=== PATIENT | female | born 1990 | race Caucasian/White ===

== ENCOUNTER 2016-10-22 15:43 | Inpatient (IN) | payer OTHER ==
[~2016-10-22] VITALS: Ht 157.5 cm; Wt 90.7 kg
[~2016-10-22 15:43] MED LIST: BACITRACIN ZINC 15 GM TOPICAL OINTMENT TP ONE; BUPIVACAINE /PF 0.75% 10 ML VIAL INJ ONE; LR 1,000 ML IV.SOLN IV ONE; MIDAZOLAM HCL 5 MG/5 ML VIAL ONE; MORPHINE SULFATE 10MG/10ML PF AMP EP ONE; MORPHINE SULFATE 10MG/10ML PF AMP ONE; NS IRRIG SOLN 1000 ML IR ONE; OXYTOCIN 10 UNIT/ML VIAL ONE
[2016-10-22 16:35] VITALS: PULSE 99; RESP 16; TEMP 97.7; O2SAT 100
[2016-10-22] MEDS ORDERED: MEPERIDINE HCL/PF 25 MG/ML DISP.SYRIN IVP PRN ×4 (16:45→20:15)
[2016-10-22 17:14] LABS: WHITE BLOOD COUNT (AUTO) 11.6 K/uL (4.8-10.8)
[2016-10-22 17:23] LABS: MEAN CORPUSCULAR HEMOGLOBIN 29 pg (27-31); RED CELL DISTRIBUTION WIDTH 12.4 % (9.0-15.0)
[2016-10-22 17:25] LABS: HEMATOCRIT 31.6 % (36-48); HEMOGLOBIN 10.5 g/dL (12.0-16.0); MEAN CORPUSCULAR HGB CONC 33 % (32-36); MEAN CORPUSCULAR VOLUME 88 fL (79.0-98.0); PLATELET COUNT (AUTO) 303 K/uL (130-430); RED BLOOD CELL COUNT(AUTO) 3.62 MIL/uL (4.2-6.2)
[2016-10-22 17:43] LABS: BAND % (MANUAL) 0 % (0-6)
[2016-10-22 17:44] LABS: BASOPHILS % (MANUAL) 0 % (0-2); EOSINOPHILS % (MANUAL) 0 % (0-7); LYMPHOCYTES % (MANUAL) 19 % (20-46); MONOCYTES % (MANUAL) 7 % (0-11)
[2016-10-22] MEDS ORDERED: LR 1,000 ML IV ONE (18:44)
[2016-10-22] MEDS ORDERED: CITRIC ACID/SODIUM CITRATE 30 ML UDC PO ONE (18:45)
[2016-10-22] MEDS ORDERED: CLINDAMYCIN 900 mg/50mL D5W 50 ML IV ONE (18:45)
[2016-10-22 19:44] LABS: HEMATOCRIT 28.7 % (36-48); HEMOGLOBIN 9.5 g/dL (12.0-16.0); MEAN CORPUSCULAR HEMOGLOBIN 29 pg (27-31); MEAN CORPUSCULAR HGB CONC 33 % (32-36); MEAN CORPUSCULAR VOLUME 88 fL (79.0-98.0); PLATELET COUNT (AUTO) 243 K/uL (130-430); RED BLOOD CELL COUNT(AUTO) 3.26 MIL/uL (4.2-6.2); RED CELL DISTRIBUTION WIDTH 12.4 % (9.0-15.0)
[2016-10-22 19:57] LABS: BAND % (MANUAL) 0 % (0-6); BASOPHILS % (MANUAL) 0 % (0-2); EOSINOPHILS % (MANUAL) 1 % (0-7); LYMPHOCYTES % (MANUAL) 7 % (20-46); MONOCYTES % (MANUAL) 5 % (0-11)
[2016-10-22] MEDS ORDERED: KETOROLAC TROMETHAMINE 30 MG VIAL IVP PRN ×2 (20:15→20:30)
[2016-10-22] MEDS ORDERED: HYDROmorphone 1 MG INJ. 1 MG/ML AMPUL IVP PRN ×2 (20:15→20:30)
[2016-10-22] MEDS ORDERED: HYDROmorphone 2 MG/ML VIAL IVP PRN ×2 (20:15)
[2016-10-22] MEDS ORDERED: LR 1,000 ML IV SCH (20:15)
[2016-10-22] MEDS ORDERED: ONDANSETRON HCL 4 MG/2 ML VIAL IVP PRN ×2 (20:15→20:30)
[2016-10-22] MEDS ORDERED: MORPHINE SULFATE 10MG/10ML PF AMP SP SCH (20:30)
[2016-10-22] MEDS ORDERED: NALOXONE HCL 0.4 MG/ML AMP (NARCAN) IVP PRN (20:30)
[2016-10-22] MEDS ORDERED: DIPHENHYDRAMINE INJ 50 MG/ML VIAL IVP PRN (20:30)
[2016-10-22] MEDS ORDERED: NALBUPHINE HCL 10 MG/ML AMP IVP PRN (20:30)
[2016-10-22 21:00] VITALS: BP 107/71
[2016-10-22] MEDS ORDERED: TEMAZEPAM 15 MG CAPSULE PO PRN (21:00)
[2016-10-22] MEDS ORDERED: OXYTOCIN/NORMAL SALINE 1,000 ML IV ONE ×2 (21:04→21:21)
[2016-10-22] MEDS ORDERED: MEPERIDINE HCL/PF 25 MG/ML DISP.SYRIN ONE (21:14)
[2016-10-22] MEDS ORDERED: ANUSOL 1 EA SUPP.RECT (PREPARATION H) RC PRN (21:15)
[2016-10-22] MEDS ORDERED: OXYCODONE/ACETAMINOPHEN 5-325 TABLET PO PRN (21:15)
[2016-10-22] MEDS ORDERED: ACETAMINOPHEN 325 MG TABLET PO PRN (21:15)
[2016-10-22] MEDS ORDERED: MEASLES,MUMPS&RUBELLA VACC/PF 12500 UNIT/0.5 ML VIAL SUBQ PRN (21:15)
[2016-10-22] MEDS ORDERED: SENNOSIDES/DOCUSATE SODIUM 1 TAB TABLET(SENOKOT-S) PO PRN (21:15)
[2016-10-22] MEDS ORDERED: DOCUSATE SODIUM 100 MG CAPSULE PO PRN (21:15)
[2016-10-22] MEDS ORDERED: BISACODYL 10 MG/SUPPOSITORY RC PRN (21:15)
[2016-10-22] MEDS ORDERED: RHO(D) IMMUNE GLOBULIN/MALTOSE 1500 UNITS/1.3 ML (WINHRO) IM PRN (21:15)
[2016-10-22] MEDS ORDERED: LANOLIN 7 GM OINT. TP PRN (21:15)
[2016-10-23 06:46] LABS: HEMATOCRIT 25.6 % (36-48); HEMOGLOBIN 8.5 g/dL (12.0-16.0); MEAN CORPUSCULAR HEMOGLOBIN 29 pg (27-31); MEAN CORPUSCULAR HGB CONC 33 % (32-36); MEAN CORPUSCULAR VOLUME 88 fL (79.0-98.0); PLATELET COUNT (AUTO) 227 K/uL (130-430); RED BLOOD CELL COUNT(AUTO) 2.92 MIL/uL (4.2-6.2); RED CELL DISTRIBUTION WIDTH 12.4 % (9.0-15.0); WHITE BLOOD COUNT (AUTO) 12.6 K/uL (4.8-10.8)
[2016-10-23 07:13] LABS: BASOPHILS % (MANUAL) 0 % (0-2); EOSINOPHILS % (MANUAL) 0 % (0-7); LYMPHOCYTES % (MANUAL) 9 % (20-46); MONOCYTES % (MANUAL) 7 % (0-11)
[2016-10-23] MEDS: IBUPROFEN 600 MG TABLET PO SCH ×2 (13:00→18:08)
[2016-10-23] MEDS: LR 1,000 ML IV SCH ×2 (13:04→17:51)
[2016-10-23] MEDS ORDERED: ONDANSETRON HCL 4 MG/2 ML VIAL IVP PRN (13:30)
[2016-10-23] MEDS ORDERED: LR 500 ML IV ONE (15:45)
[2016-10-23] MEDS: SIMETHICONE 80 MG TAB.CHEW PO PRN (23:26)
[2016-10-24] MEDS: IBUPROFEN 600 MG TABLET PO SCH ×4 (00:20→17:40)
[2016-10-24] MEDS ORDERED: CITRIC ACID/SODIUM CITRATE 30 ML UDC ONE (03:24)
[2016-10-24] MEDS ORDERED: CITRIC ACID/SODIUM CITRATE 30 ML UDC PO ONE (03:30)
[2016-10-24] MEDS: OXYCODONE/ACETAMINOPHEN 5-325 TABLET PO PRN (12:00)
[2016-10-25] MEDS: IBUPROFEN 600 MG TABLET PO SCH ×3 (00:10→12:01)
[2016-10-25] MEDS: OXYCODONE/ACETAMINOPHEN 5-325 TABLET PO PRN (08:42)
[2016-10-25] MEDS: SIMETHICONE 80 MG TAB.CHEW PO PRN ×2 (08:43→12:01)
== END 2016-10-25 13:15 | disposition home or self-care (01) | DRG 766 ==
LOC: SDS 15:43 → SMU 15:49 → SDS 18:41 → SPU 18:42
PROVIDERS: ADMIT Obstetrics & Gynecology; ATTEND Obstetrics & Gynecology
PROC: 0UQMXZZ Repair Vulva, External Approach (ICD-10-PCS; 2016-10-22)
PROC: 0U9MXZZ Drainage of Vulva, External Approach (ICD-10-PCS; 2016-10-22)
PROC: 3E0234Z Introduction of Serum, Toxoid and Vaccine into Muscle, Percutaneous Approach (ICD-10-PCS; 2016-10-22)
PROC: 10D00Z1 Extraction of Products of Conception, Low, Open Approach (ICD-10-PCS; principal; 2016-10-22 16:00)
DX: O69.81X0 Labor and delivery complicated by cord around neck, without compression, not applicable or unspecified (principal); O99.52 Diseases of the respiratory system complicating childbirth; J45.909 Unspecified asthma, uncomplicated; O75.89 Other specified complications of labor and delivery; N90.7 Vulvar cyst; T14.8 Other injury of unspecified body region; X58.XXXA Exposure to other specified factors, initial encounter; Y92.89 Other specified places as the place of occurrence of the external cause; Y93.89 Activity, other specified; Y99.8 Other external cause status; Z88.1 Allergy status to other antibiotic agents; Z3A.38 38 weeks gestation of pregnancy; Z37.0 Single live birth; Z23 Encounter for immunization
CPT/HCPCS: 36415; 85007; 85027; 86592; 86886; 86900; 86901; 94760; J1885; J2175; J2250; J2274; J2405; J2590; J3490; J7120

== ENCOUNTER 2017-09-19 08:27 | Day surgery (SDC) | payer BC ==
[~2017-09-19] VITALS: Ht 157.5 cm; Wt 74.8 kg
[2017-09-19 09:05] LABS: HCG,QUAL RESULT NEGATIVE (NEGATIVE)
[2017-09-19] MEDS ORDERED: IOHEXOL 50 ML IV ONE (11:10)
[2017-09-19] MEDS ORDERED: LR 1,000 ML IV SCH (11:22)
[2017-09-19] MEDS ORDERED: MORPHINE 4 MG/ML INJ. SYRINGE IVP PRN ×3 (11:30)
[2017-09-19] MEDS ORDERED: METOCLOPRAMIDE HCL 10 MG/2 ML VIAL IVP PRN (11:30)
[2017-09-19] MEDS ORDERED: HYDROcodone/ACETAMIN 5-325 MG TAB (NORCO/ VICODIN) PO PRN ×2 (11:45)
[2017-09-19] MEDS ORDERED: D5/0.45 NS 1,000 ML IV SCH (11:45)
[2017-09-19] MEDS ORDERED: HYDROmorphone 1 MG INJ. 1 MG/ML AMPUL IVP PRN (11:45)
[2017-09-19] MEDS ORDERED: fentaNYL CITRATE/PF 100 MCG/2 ML AMP IVP ONE (11:55)
[2017-09-19] MEDS ORDERED: BUPIVACAINE /PF 0.25% 30 ML VIAL INJ ONE (11:55)
[2017-09-19] MEDS ORDERED: ROCURONIUM BROMIDE 10 MG/ML (ZEMURON) IV ONE (11:55)
[2017-09-19] MEDS ORDERED: NEOSTIGMINE METHYLSULFATE 1 MG/ML, 10 ML VIAL IVP ONE (11:55)
[2017-09-19] MEDS ORDERED: NS 1000 ML BAG IV ONE (11:55)
[2017-09-19] MEDS ORDERED: NS IRRIG SOLN 1000 ML IR ONE (11:55)
[2017-09-19] MEDS ORDERED: GLYCOPYRROLATE 0.2 MG/ML VIAL IJ ONE (11:55)
[2017-09-19] MEDS ORDERED: DEXAMETHASONE SOD PHOSPHATE 4 MG/ML VIAL IVP ONE (11:55)
[2017-09-19] MEDS ORDERED: PROPOFOL 200MG/ 20ML VIAL (DIPRIVAN) IV ONE (11:55)
[2017-09-19] MEDS ORDERED: LR 1,000 ML IV.SOLN IV ONE (11:55)
[2017-09-19] MEDS ORDERED: ONDANSETRON HCL 4 MG/2 ML VIAL IVP ONE (11:55)
[2017-09-19] MEDS ORDERED: CLINDAMYCIN PHOSPHATE 600 MG/4 ML VIAL IV ONE (11:55)
[2017-09-19] MEDS ORDERED: SEVOFLURANE 15 MIN GAS INH ONE (11:55)
[2017-09-19] MEDS ORDERED: MIDAZOLAM HCL 5 MG/ML VIAL (VERSED) IV ONE (11:55)
[2017-09-19] MEDS ORDERED: MORPHINE SULFATE 10 MG/ML VIAL ONE (12:07)
[2017-09-19] MEDS ORDERED: MORPHINE SULFATE 10 MG/ML VIAL IVP ONE ×2 (12:08→12:22)
[2017-09-19] MEDS ORDERED: HYDROcodone/ACETAMIN 5-325 MG TAB (NORCO/ VICODIN) ONE (13:00)
[2017-09-19 13:39] VITALS: BP_SYST 110
== END 2017-09-19 15:30 | disposition home or self-care (01) ==
LOC: SMU 08:27 → SDS 08:27
PROVIDERS: ATTEND Colon & Rectal Surgery
DX: K80.10 Calculus of gallbladder with chronic cholecystitis without obstruction (principal); J45.909 Unspecified asthma, uncomplicated; E66.3 Overweight; K21.9 Gastro-esophageal reflux disease without esophagitis
CPT/HCPCS: 47563; 76000; 84703; 88304; C1727; C1758; J1100; J2250; J2270; J2405; J2704; J2710; J3010; J3490 ×3; J7030; J7120; Q9967

== ENCOUNTER 2018-08-11 10:13 | Inpatient (IN) | payer BC ==
[~2018-08-11] VITALS: Ht 157.5 cm; Wt 88.9 kg
[2018-08-11] MEDS ORDERED: LR 1,000 ML IV ONE (10:31)
[2018-08-11] MEDS ORDERED: CEFAZOLIN 2 GM IVPB PREMIX 50 ML IV ONE (10:45)
[2018-08-11 11:26] LABS: EOSINOPHILS % (AUTO) 1.7 % (0.0-4.0); HEMATOCRIT 33.8 % (36-48); HEMOGLOBIN 11.2 g/dL (12.0-16.0); LYMPHOCYTES % (AUTO) 20.8 % (20.5-51.5); MEAN CORPUSCULAR HEMOGLOBIN 29 pg (27-31); MEAN CORPUSCULAR HGB CONC 33 % (32-36); MEAN CORPUSCULAR VOLUME 87 fL (79.0-98.0); MONOCYTES % (AUTO) 5.4 % (1.7-9.3); NEUTROPHILS % (AUTO) 71.6 % (40.0-70.0); PLATELET COUNT (AUTO) 243 K/uL (130-430); RED BLOOD CELL COUNT(AUTO) 3.87 MIL/uL (4.2-6.2); RED CELL DISTRIBUTION WIDTH 13.4 % (9.0-15.0); WHITE BLOOD COUNT (AUTO) 7.4 K/uL (4.8-10.8)
[2018-08-11 11:27] LABS: BASOPHILS % (AUTO) 0.5 % (0.0-2.0); EOSINOPHILS # (AUTO) 0.1 K/uL (0.0-0.4); LYMPHOCYTES # (AUTO) 1.5 K/uL (1.0-5.5); MONOCYTES # (AUTO) 0.4 K/uL (0.0-1.0); NEUTROPHILS # (AUTO) 5.3 K/uL (1.8-7.7)
[2018-08-11 11:43] LABS: CLARITY/URINE SLIGHTLY HAZY (CLEAR); COLOR,URINE YELLOW (YELLOW)
[2018-08-11 11:44] LABS: BILIRUBIN,URINE NEGATIVE (NEGATIVE); BLOOD, URINE NEGATIVE (NEGATIVE); GLUCOSE,URINE NEGATIVE (NEGATIVE); KETONES,URINE NEGATIVE (NEGATIVE); LEUKOCYTE ESTERASE ,URINE NEGATIVE (NEGATIVE); NITRITE, URINE NEGATIVE (NEGATIVE); PH,URINE 6.5 (5.0-8.0); PROTEIN URINE TRACE (NEGATIVE); UROBILINOGEN,URINE 0.2 (0.2-1.0)
[2018-08-11] MEDS ORDERED: MORPHINE SULFATE 10MG/10ML PF AMP SP SCH (12:30)
[2018-08-11] MEDS ORDERED: DIPHENHYDRAMINE INJ 50 MG/ML VIAL IVP PRN (12:30)
[2018-08-11] MEDS ORDERED: KETOROLAC TROMETHAMINE 60 MG/2 ML VIAL IM PRN (12:30)
[2018-08-11] MEDS ORDERED: ONDANSETRON HCL 4 MG/2 ML VIAL IVP PRN (12:30)
[2018-08-11] MEDS ORDERED: NALBUPHINE HCL 10 MG/ML AMP IVP PRN (12:30)
[2018-08-11] MEDS ORDERED: NALOXONE HCL 0.4 MG/ML AMP (NARCAN) IVP PRN ×2 (12:30)
[2018-08-11] MEDS ORDERED: fentaNYL CITRATE/PF 100 MCG/2 ML AMP IVP PRN ×2 (12:30)
[2018-08-11] MEDS ORDERED: OXYTOCIN/0.9 % SODIUM CHLORIDE 1,000 ML IV ONE (15:57)
[2018-08-11] MEDS ORDERED: LR 1,000 ML IV SCH (15:57)
[2018-08-11] MEDS ORDERED: LANOLIN 7 GM OINT. TP PRN (16:00)
[2018-08-11] MEDS ORDERED: BISACODYL 10 MG/SUPPOSITORY RC PRN (16:00)
[2018-08-11] MEDS ORDERED: ANUSOL 1 EA SUPP.RECT (PREPARATION H) RC PRN (16:00)
[2018-08-11] MEDS ORDERED: SENNOSIDES/DOCUSATE SODIUM 1 TAB TABLET(SENOKOT-S) PO PRN (16:00)
[2018-08-11] MEDS ORDERED: MEASLES,MUMPS&RUBELLA VACC/PF 12500 UNIT/0.5 ML VIAL SUBQ PRN (16:00)
[2018-08-11] MEDS ORDERED: ACETAMINOPHEN 325 MG TABLET PO PRN (16:00)
[2018-08-11] MEDS ORDERED: SIMETHICONE 80 MG TAB.CHEW PO PRN (16:00)
[2018-08-11] MEDS ORDERED: RHO(D) IMMUNE GLOBULIN/MALTOSE 1500 UNITS/1.3 ML (WINHRO) IM PRN (16:00)
[2018-08-11] MEDS ORDERED: OXYCODONE/ACETAMINOPHEN 5-325 TABLET PO PRN ×2 (16:00)
[2018-08-11 20:11] VITALS: BP_SYST 107
[2018-08-11] MEDS ORDERED: TEMAZEPAM 15 MG CAPSULE PO PRN (21:00)
[2018-08-12] MEDS: IBUPROFEN 600 MG TABLET PO SCH ×3 (06:00→23:55)
[2018-08-12 07:04] LABS: HEMATOCRIT 26.2 % (36-48); HEMOGLOBIN 8.7 g/dL (12.0-16.0); MEAN CORPUSCULAR HEMOGLOBIN 29 pg (27-31); MEAN CORPUSCULAR HGB CONC 33 % (32-36); MEAN CORPUSCULAR VOLUME 88 fL (79.0-98.0); PLATELET COUNT (AUTO) 189 K/uL (130-430); RED BLOOD CELL COUNT(AUTO) 2.97 MIL/uL (4.2-6.2); RED CELL DISTRIBUTION WIDTH 13.2 % (9.0-15.0); WHITE BLOOD COUNT (AUTO) 9.5 K/uL (4.8-10.8)
[2018-08-12 07:05] LABS: BASOPHILS # (AUTO) 0.1 K/uL (0.0-0.2); BASOPHILS % (AUTO) 0.6 % (0.0-2.0); EOSINOPHILS # (AUTO) 0.1 K/uL (0.0-0.4); EOSINOPHILS % (AUTO) 1.4 % (0.0-4.0); LYMPHOCYTES # (AUTO) 1.3 K/uL (1.0-5.5); LYMPHOCYTES % (AUTO) 13.5 % (20.5-51.5); MONOCYTES # (AUTO) 0.5 K/uL (0.0-1.0); MONOCYTES % (AUTO) 4.9 % (1.7-9.3); NEUTROPHILS # (AUTO) 7.6 K/uL (1.8-7.7); NEUTROPHILS % (AUTO) 79.6 % (40.0-70.0)
[2018-08-12] MEDS: DOCUSATE SODIUM 100 MG CAPSULE PO PRN (23:55)
[2018-08-13] MEDS: DOCUSATE SODIUM 100 MG CAPSULE PO PRN (06:00)
[2018-08-13] MEDS: IBUPROFEN 600 MG TABLET PO SCH ×2 (06:00→12:17)
[2018-08-13] MEDS ORDERED: WATER FOR IRRIGATION,STERILE 1,000 ML IRRIG.SOLN IR ONE (14:30)
[2018-08-13] MEDS ORDERED: BUPIVACAINE /PF 0.75% 10 ML VIAL INJ ONE (14:30)
[2018-08-13] MEDS ORDERED: LR 1,000 ML IV.SOLN IV ONE (14:30)
[2018-08-13] MEDS ORDERED: KETOROLAC TROMETHAMINE 30 MG VIAL IVP ONE (14:30)
== END 2018-08-13 14:20 | disposition home or self-care (01) | DRG 788 ==
LOC: SPU 10:13
PROVIDERS: ADMIT Obstetrics & Gynecology; ATTEND Obstetrics & Gynecology
PROC: 10D00Z1 Extraction of Products of Conception, Low, Open Approach (ICD-10-PCS; principal; 2018-08-11 14:15)
DX: O99.52 Diseases of the respiratory system complicating childbirth (principal); O34.211 Maternal care for low transverse scar from previous cesarean delivery; J45.909 Unspecified asthma, uncomplicated; Z90.49 Acquired absence of other specified parts of digestive tract; Z37.0 Single live birth; Z3A.38 38 weeks gestation of pregnancy; Z82.5 Family history of asthma and other chronic lower respiratory diseases
CPT/HCPCS: 36415; 81003; 85025; 86592; 86886; 86900; 86901; J0690; J1200; J1885; J2590; J3490; J7120